=== PATIENT | female | born 1950 | race African-American/Black ===

== ENCOUNTER 2023-02-24 17:04 | Emergency (ER) | payer MEDICARE ==
[~2023-02-24] VITALS: Ht 165.1 cm; Wt 68.0 kg
[2023-02-24 17:17] VITALS: BP 141/83; O2SAT 100
[2023-02-24 17:55] LABS: BASOPHILS % 0.6 % (0.0-2.0); EOSINOPHILS % 2.1 % (0.0-5.0); HEMATOCRIT. 38.8 % (36.0-48.0); HEMOGLOBIN. 12.9 g/dL (12.0-16.0); LYMPHOCYTES % 27.4 % (20.0-50.0); MEAN CORPUSCULAR HEMOGLOBIN 31.4 pg (28.0-32.0); MEAN CORPUSCULAR HGB CONC 33.2 g/dL (31.0-37.0); MEAN CORPUSCULAR VOLUME 94.5 fL (81.0-99.0); MEAN PLATELET VOLUME 7.9 fl (7.4-10.4); MONOCYTES % 10.6 % (2.0-8.0); NEUTROPHILS % 59.3 % (40.0-76.0); PLATELET 332 x1000/uL (130-400); RED CELL DISTRIBUTION WIDTH 14.2 % (11.6-14.6); WHITE BLOOD COUNT 6.8 x1000/uL (4.5-11.0)
[2023-02-24 18:05] LABS: PROTHROMBIN TIME 10.7 sec (9.6-11.0)
[2023-02-24 18:10] LABS: ALANINE AMINOTRANSFERASE 23 IU/L (10-49); ALBUMIN 4.1 g/dL (3.2-4.8); ASPARTATE AMINOTRANSFERASE 26 IU/L (<34); BILIRUBIN TOTAL 0.6 mg/dL (0.1-1.0); CALCIUM 10.7 mg/dL (8.7-10.4); CARBON DIOXIDE 30 mEq/L (21-32); CHLORIDE 109 mEq/L (98-107); GLUCOSE 84 mg/dL (70-105); POTASSIUM 3.5 mEq/L (3.5-5.1); PROTEIN TOTAL 6.6 g/dL (6.0-8.3); SODIUM 143 mEq/L (136-145); TROPONIN I HIGH SENSITIVITY 5 ng/L (3.0-34); UREA NITROGEN BLOOD 9 mg/dL (9-23)
[2023-02-24 23:00] LABS: CLARITY URINE CLOUDY (CLEAR); COLOR URINE YELLOW (YELLOW); GLUCOSE URINE NEGATIVE (NEGATIVE); KETONES URINE NEGATIVE (NEGATIVE); LEUKOCYTE ESTERASE URINE 3+ (NEGATIVE); NITRITE URINE NEGATIVE (NEGATIVE); OCCULT BLOOD URINE NEGATIVE (NEGATIVE); PROTEIN URINE NEGATIVE (NEGATIVE)
[2023-02-24 23:25] LABS: BACTERIA URINE 2+; RBC URINE 0-2 /hpf (0-2); SQUAMOUS EPITHELIAL CELL URINE 1+ /lpf (RARE/1+)
[2023-02-24] MEDS ORDERED: NITR-87 MT (23:28)
[2023-02-24 23:42] VITALS: PULSE 75; RESP 20; TEMP 98.3
== END 2023-02-24 23:44 | disposition home or self-care (01) ==
LOC: ER 17:04
DX: M79.672 Pain in left foot (principal); R07.89 Other chest pain; Z88.0 Allergy status to penicillin; Z88.5 Allergy status to narcotic agent
CPT/HCPCS: 36415; 71045; 80053; 81003; 84484; 85025; 93005; 93971; 99285